=== PATIENT | female | born 1955 | race Caucasian/White ===

== ENCOUNTER 2018-03-14 01:55 | Inpatient (IN) | payer BC ==
[~2018-03-14] VITALS: Ht 162.6 cm; Wt 102.9 kg
[2018-03-14] VITALS (514 sets, daily range): BP systolic 104–154; BP diastolic 54–89; PULSE 102–119; TEMP 98.3–99; O2SAT 89–100
[~2018-03-14 01:55] MED LIST: ZITHROMAX 250M250 MG PO
[2018-03-14] MEDS ORDERED: NEXIUM 40MG40 MG PO ×2 (03:50→03:51)
[2018-03-14] MEDS ORDERED: DALIRESP500 MCG PO (03:52)
[2018-03-14] MEDS ORDERED: GLUCOPHAGE500 MG/TAB PO (03:52)
[2018-03-14] MEDS ORDERED: TAPAZOLE5 MG PO (03:52)
[2018-03-14] MEDS ORDERED: LIPITOR 10MG10 MG PO (03:53)
[2018-03-14] MEDS ORDERED: LEXAPRO20 MG PO (03:53)
[2018-03-14] MEDS ORDERED: COZAAR 25MG25 MG/TAB PO (03:54)
[2018-03-14] MEDS ORDERED: ASPIRIN 81M81 MG/TA2 PO (03:54)
[2018-03-14] MEDS ORDERED: TOPROL XL 25MG25 MG PO (03:57)
[2018-03-14] MEDS ORDERED: ATIVAN 0.50.5 MG/TAB PO (03:58)
[2018-03-14] MEDS ORDERED: 00186-0370-20 IH (04:00)
[2018-03-14] MEDS ORDERED: SPIRIVA RE2.5 MCG/Ac IH (04:00)
[2018-03-14] MEDS ORDERED: IPRATROPIUM BROM3 M1 IH (04:01)
[2018-03-14] MEDS ORDERED: VENTOLIN0.09 MG IH (04:01)
[2018-03-14] MEDS ORDERED: COMPAZINE 110 MG/TAB PO (04:03)
[2018-03-14] MEDS ORDERED: DEMADEX 20MG20 M1 PO (04:05)
[2018-03-14] MEDS ORDERED: TESSALON PERLE200 MG PO (04:05)
[2018-03-14] MEDS ORDERED: FLEXERIL5 MG PO (04:06)
[2018-03-14] MEDS ORDERED: DRAMAMINE LESS25 MG PO (04:06)
[2018-03-14 04:25] LABS: MEAN CELL VOLUME 81 fl (80.0-100.0); MEAN CORPUSCULAR HGB CONC 30 g/dl (33.0-37.0); MEAN PLATELET VOLUME 10.3 fl (7.4-10.4); PLATELET COUNT 193 K/mm3 (130-400); RED BLOOD COUNT 3.88 M/mm3 (4.10-5.30); REDCELL DISTRIBUTION WIDTH-CV 14.3 % (11.5-14.5)
[2018-03-14 04:31] LABS: HEMATOCRIT 31.3 % (37.0-47.0); HEMOGLOBIN 9.4 g/dl (12.5-16.0); MEAN CORPUSCULAR HEMOGLOBIN 24 pg (27.0-31.0)
[2018-03-14 04:36] LABS: ALBUMIN 3.4 gm/dL (3.5-5.0); BILIRUBIN,TOTAL 0.5 mg/dL (0.0-1.0); CREATININE, serum 0.75 mg/dL (0.52-1.25); TOTAL PROTEIN 6.4 gm/dL (6.4-8.2)
[2018-03-14 04:47] LABS: TROPONIN-I < 0.012 ng/mL (0.000-0.034)
[2018-03-14 04:49] LABS: MAGNESIUM 1.1 mg/dL (1.6-2.3)
[2018-03-14 04:58] LABS: INR 1.4 (0.8-3.0); PROTHROMBIN TIME 15.5 SECONDS (9.7-12.8)
[2018-03-14 05:00] LABS: PARTIAL THROMBOPLASTIN TIME 30.7 SECONDS (26.0-37.0)
[2018-03-14 05:37] LABS: BAND 2 % (0-10); HYPOCHROMIA 3+; NEUTROPHILS 98 % (42.0-75.2)
[2018-03-14 05:38] LABS: PLATELET ESTIMATE NORMAL (NORMAL)
[2018-03-14 08:12] LABS: TSH w REFLEX 0.047 uIU/mL (0.465-4.680)
[2018-03-15 00:10] VITALS: BP 129/57; PULSE 94; TEMP 98.4
[2018-03-15 03:27] VITALS: BP 119/66; PULSE 101; TEMP 98.2
[2018-03-15 06:03] LABS: MUCOUS Present /lpf; PH 5 (5-8); SQUAMOUS EPITHELIAL 0-2 /hpf; URINE APPEARANCE Hazy; URINE BACTERIA Rare /hpf; URINE BILIRUBIN Negative (NEGATIVE); URINE BLOOD Negative (NEGATIVE); URINE COLOR Yellow; URINE GLUCOSE 1+ (NEGATIVE); URINE KETONE Negative (NEGATIVE); URINE LEUKOCYTE ESTERASE Negative (NEGATIVE); URINE NITRATE Negative (NEGATIVE); URINE PROTEIN(semi-quant) Negative (NEGATIVE); URINE RBC 0-2 /hpf; URINE UROBILINOGEN Negative (NEGATIVE)
[2018-03-15 06:23] LABS: MEAN CELL VOLUME 81 fl (80.0-100.0); MEAN CORPUSCULAR HGB CONC 30 g/dl (33.0-37.0); MEAN PLATELET VOLUME 9.8 fl (7.4-10.4); PLATELET COUNT 206 K/mm3 (130-400); RED BLOOD COUNT 3.29 M/mm3 (4.10-5.30); REDCELL DISTRIBUTION WIDTH-CV 14.2 % (11.5-14.5)
[2018-03-15 06:26] LABS: HEMATOCRIT 26.6 % (37.0-47.0); MEAN CORPUSCULAR HEMOGLOBIN 24 pg (27.0-31.0)
[2018-03-15 06:28] LABS: CALCIUM 7.8 mg/dL (8.4-10.2); CREATININE, serum 0.64 mg/dL (0.52-1.25); MAGNESIUM 1.7 mg/dL (1.6-2.3); POTASSIUM 3.6 mmol/L (3.4-5.0)
[2018-03-15 06:28] LABS: COLLECTION METHOD CLEAN CATCH
[2018-03-15 06:58] LABS: BAND 7 % (0-10); LYMPHOCYTE 5 % (20.0-51.0); NEUTROPHILS 83 % (42.0-75.2); PLATELET ESTIMATE NORMAL (NORMAL)
[2018-03-15 06:59] LABS: HYPOCHROMIA 1+; MICROCYTOSIS 1+
[2018-03-15 08:33] VITALS: BP 129/51; PULSE 102; TEMP 98.4
[2018-03-15 11:10] VITALS: BP 100/38; PULSE 87; TEMP 98.6
[2018-03-15 15:57] VITALS: BP 118/50; PULSE 99; TEMP 98.7
[2018-03-15 21:00] VITALS: BP 131/53; PULSE 100; TEMP 98.5
[2018-03-16 01:00] VITALS: BP 125/57; PULSE 95; TEMP 98.5
[2018-03-16 04:42] VITALS: BP 122/52; PULSE 86; TEMP 98.6
[2018-03-16 11:25] VITALS: BP 137/67; PULSE 95; TEMP 98.5
[2018-03-16 15:28] VITALS: BP 139/68; PULSE 101; TEMP 98.4
[2018-03-16 19:37] VITALS: BP 151/74; PULSE 89; TEMP 98.6
[2018-03-17 00:39] VITALS: BP 130/59; PULSE 88; TEMP 98.2
[2018-03-17 03:25] VITALS: BP 136/57; PULSE 83; TEMP 98.2
[2018-03-17 06:40] LABS: CALCIUM 8.1 mg/dL (8.4-10.2); CREATININE, serum 0.65 mg/dL (0.52-1.25); POTASSIUM 3.7 mmol/L (3.4-5.0)
[2018-03-17 06:48] LABS: GRAN # 3.3 (1.4-6.5); GRAN % 84.4 % (42.2-75.2); LYMPH # 0.3 (1.2-3.4); LYMPH % 8.2 % (20.0-51.0); MEAN CELL VOLUME 81 fl (80.0-100.0); MEAN CORPUSCULAR HGB CONC 30 g/dl (33.0-37.0); MEAN PLATELET VOLUME 9.6 fl (7.4-10.4); MONO # 0.3 (0.1-0.6); MONO % 6.4 % (1.7-9.3); PLATELET COUNT 212 K/mm3 (130-400); RED BLOOD COUNT 3.38 M/mm3 (4.10-5.30); REDCELL DISTRIBUTION WIDTH-CV 14.1 % (11.5-14.5)
[2018-03-17 06:49] LABS: HEMATOCRIT 27.3 % (37.0-47.0); HEMOGLOBIN 8.2 g/dl (12.5-16.0); MEAN CORPUSCULAR HEMOGLOBIN 24 pg (27.0-31.0)
[2018-03-17 10:22] VITALS: BP 119/53; PULSE 100; TEMP 98.2
[2018-03-17 11:07] VITALS: BP 119/53; PULSE 100; TEMP 98.2
[2018-03-17 16:04] VITALS: BP 148/69; PULSE 98; TEMP 98.5
[2018-03-18 02:37] VITALS: BP 147/54; PULSE 84; TEMP 98.4
[2018-03-18 07:12] LABS: MEAN CELL VOLUME 80 fl (80.0-100.0); MEAN CORPUSCULAR HGB CONC 31 g/dl (33.0-37.0); MEAN PLATELET VOLUME 9.6 fl (7.4-10.4); PLATELET COUNT 202 K/mm3 (130-400); RED BLOOD COUNT 3.27 M/mm3 (4.10-5.30); REDCELL DISTRIBUTION WIDTH-CV 14.1 % (11.5-14.5)
[2018-03-18 07:15] LABS: HEMATOCRIT 26.1 % (37.0-47.0); HEMOGLOBIN 8.1 g/dl (12.5-16.0); MEAN CORPUSCULAR HEMOGLOBIN 25 pg (27.0-31.0)
[2018-03-18 07:25] LABS: CREATININE, serum 0.62 mg/dL (0.52-1.25); POTASSIUM 3.6 mmol/L (3.4-5.0)
[2018-03-18 08:18] LABS: BAND 3 % (0-10); LYMPHOCYTE 10 % (20.0-51.0); NEUTROPHILS 82 % (42.0-75.2); PLATELET ESTIMATE NORMAL (NORMAL)
[2018-03-18 08:19] LABS: POLYCHROMASIA 1+
[2018-03-18 08:40] VITALS: BP 136/54; PULSE 82; TEMP 98.2
[2018-03-18] MEDS ORDERED: LEVAQUIN 750MG750 M1 PO (10:17)
[2018-03-18] MEDS ORDERED: PREDNISONE20 MG PO (10:24)
== END 2018-03-18 14:00 | disposition home or self-care (01) | DRG 871 ==
LOC: ICU 01:55 → MEDICAL 02:49
PROVIDERS: Family Medicine; Nurse Practitioner Family; Physician Assistant
DX: A41.9 Sepsis, unspecified organism (principal); J96.21 Acute and chronic respiratory failure with hypoxia; J15.1 Pneumonia due to Pseudomonas; J12.1 Respiratory syncytial virus pneumonia; J44.0 Chronic obstructive pulmonary disease with (acute) lower respiratory infection; C34.32 Malignant neoplasm of lower lobe, left bronchus or lung; C78.7 Secondary malignant neoplasm of liver and intrahepatic bile duct; I10 Essential (primary) hypertension; E11.9 Type 2 diabetes mellitus without complications; Z93.0 Tracheostomy status; Z87.891 Personal history of nicotine dependence; J38.02 Paralysis of vocal cords and larynx, bilateral
CPT/HCPCS: 99222-AI; 99232-AI; 99239; J0692; J1644; J1650; J1815; J1956; J2920; J2930; J3370; J3475; J7030; J7040; J7050

== ENCOUNTER → 2018-06-23 | Outpatient (CLI) | payer BC ==
[~2018-06-23] MED LIST changes: +00186-0370-20 IH; +ASPIRIN 81M81 MG/TA2 PO; +ATIVAN 0.50.5 MG/TAB PO; +COMPAZINE 110 MG/TAB PO; +COZAAR 25MG25 MG/TAB PO; +DALIRESP500 MCG PO; +DEMADEX 20MG20 M1 PO; +DRAMAMINE LESS25 MG PO; +FLEXERIL5 MG PO; +GLUCOPHAGE500 MG/TAB PO; +IPRATROPIUM BROM3 M1 IH; +LEVAQUIN 750MG750 M1 PO; +LEXAPRO20 MG PO; +LIPITOR 10MG10 MG PO; +NEXIUM 40MG40 MG PO; +PREDNISONE20 MG PO; +SPIRIVA RE2.5 MCG/Ac IH; +TAPAZOLE5 MG PO; +TESSALON PERLE200 MG PO; +TOPROL XL 25MG25 MG PO; +VENTOLIN0.09 MG IH
== END ==
LOC: COL.VAS 11:00
DX: C34.12 Malignant neoplasm of upper lobe, left bronchus or lung (principal); M79.89 Other specified soft tissue disorders